=== PATIENT | male | born 1965 | race African-American/Black ===

== ENCOUNTER 2020-08-14 08:00 | Outpatient (CLI) | payer BC, SELFPAY ==
--- NOTE | 2020-09-03 22:38 | SLEEP_ITS ---
HOME SLEEP TEST DATE OF STUDY: 08/14/2020 ORDERING PHYSICIAN: Kathrin Howell MD. REASON FOR THIS STUDY: Insomnia, poor quality sleep. HISTORY: This patient is a 55-year-old male, 5 feet 6 inches tall, weighing 193 pounds with a body mass index of 31.1. He had insomnia, which started in 2012, has been treated with temazepam, zolpidem, and trazodone. He has difficulty falling asleep and difficulty with problems waking up during the night including the chlorine cell tender hours. He occasionally awakens from sleep feeling short of breath, never awakens at night with heartburn, belching, or coughing. He rarely snores and it is never loud enough that others complain about it. He does not have trouble sleeping with a cold. He rarely wakes up gasping for breath at night, occasionally has breathing problems at night witnessed by others. He does not sweat excessively at night. He does not notice his heart pounding or beating irregularly at night. He rarely falls asleep during the day never involuntarily, never while driving and never with physical effort. He does not have loss of muscle tone with strong emotion. He occasionally has daytime difficulties due to excessive sleepiness. He does not feel paralyzed on waking or falling asleep and occasionally has vivid dreamlike scenes upon awakening or falling asleep. He is rarely afraid to go to sleep. He rarely has nightmares. He occasionally remembers his dreams. He rarely has racing thoughts. He rarely feels sad or depressed. He rarely has anxiety. He occasionally has muscular tension. He occasionally notices parts of his body jerking and he occasionally kicks at night. He does not have crawly achy feelings in his legs, denies leg pain at night and does not have morning jaw pain. He occasionally grinds his teeth at night. He occasionally is bothered by pain during the day. He is not awakened by pain during the night, does not wake up feeling stiff in the morning, does not have sore achy muscles in the morning or pain in the neck and spine. He has fatigue, headaches, insomnia and is unable to relax. Normal bedtime is 11 p.m. to 12 p.m., falling asleep within 30 minutes or as long as 2 hours. He typically wakes 1 or 2 times at night. During this time, he will use the Internet or the television. His wake-up time is 6:45 a.m. The weekend schedule varies. In addition to his sedatives at bedtime, he also has a drink or more than 1 drink or else he will not be able to fall asleep at night. He does not take naps. Naps are not refreshing. He is drowsy in the morning for an hour or longer after waking. He feels better in the afternoon compared to other times of day. He also indicates that cocaine usage from [id number] cause difficulties with his nerves and this has also worsened his sleep. He cannot sleep now without help. MEDICAL COMORBIDITIES: Anxiety, asthma, substance use disorder, insomnia. CURRENT MEDICATIONS: Zolpidem 10 mg on the night of this sleep study. Advair 250/50 twice a day for asthma, albuterol 1 puff as needed p.r.n. asthma. HABITS: Never smoked tobacco. Caffeine, 1 energy drink as needed. Alcohol 2-4 shots daily. No current recreational drugs, although he indicates that he has used cocaine up until 2017. DESCRIPTION OF THE STUDY: On the Clifford Sleepiness Scale, his score is 0. This study was performed as an unattended home sleep test, portable type 3 with 4 channel monitoring including respiratory effort channel, snoring channel, oxygen saturation channel, and heart rate channel. This study was scored using CMS guidelines. The data was not adequate for normal interpretation. The oximeter was off for most of the study. The duration of the data that could be evaluated was 52 minutes, which is very rachael
== END 2020-08-14 08:01 | disposition home or self-care (01) ==
LOC: ANHCSM 08:00
PROVIDERS: PCP Family Medicine; Visit Provider Family Medicine
DX: G47.10 Hypersomnia, unspecified (principal)
CPT/HCPCS: 95806

== ENCOUNTER 2020-09-25 16:32 | Emergency (ER) | payer SELFPAY ==
[2020-09-25 16:37] VITALS: BP 132/85; PULSE 107; RESP 18; TEMP 36.4; O2SAT 95
--- NOTE | 2020-09-25 17:01 | ED.ALCOHOL ---
HPI - Alcohol General Chief Complaint: Alcohol Stated Complaint: alcohol withdrawal Time Seen by Provider: 09/25/20 17:01 Source: patient Limitations: no limitations History of Present Illness HPI narrative: Patient is 55 years old -[place] male presents with depression, feeling lonely, feeling scared, and would like to punch the president [employer]o [employer], abdominal trauma and he knew that he cannot do it because he would be killed but would like to punch him. Patient also not sure if he wants to harm himself or not. Did not go to work for the last 5 days, been drinking since and would like to keep drinking and he does not know why. Patient believes there is something wrong in his head. Patient lives alone, came to the emergency room with his daughter. Related Data Home Medications Medication Instructions Recorded Confirmed hydroxyzine HCl 09/26/20 temazepam mg 09/26/20 zolpidem 09/26/20 Allergies Allergy/AdvReac Type Severity Reaction Status Date / Time No Known Allergies Allergy Verified 09/26/20 00:57 Review of Systems Review of Systems: Narrative: CONSTITUTIONAL: Denies fever, chills, or sweats. EYES: Denies visual changes, redness, or discharge. ENT: Denies rhinorrhea, congestion, sore throat, or otalgia. CARDIOVASCULAR: Denies chest pain, palpitations, or edema. RESPIRATORY: Denies cough or dyspnea. GASTROINTESTINAL: Denies abdominal pain, nausea, vomiting, or diarrhea. GENITOURINARY: Denies dysuria or hematuria. SKIN: Denies rash or itching. MUSCULOSKELETAL: Denies back pain, joint pain, or myalgia. NEUROLOGIC: Denies headache, numbness, or weakness. PSYCHIATRIC: Anxiety and depression PMFSH Social History Social History (Updated 09/25/20 @ 17:23 by Eloisa Judd MD) Social History: Patient drinks daily since he was 14 years old Gender identity (if verbalized by the patient): Male Exam Narrative: Exam Narrative: General appearance: Well-developed, well-nourished Skin: Normal color Head: Normocephalic, nontraumatic Eyes: Clear conjunctiva ENT: Oropharynx normal, ears normal, nose normal Neck: Supple, nontender Chest and respiratory: Airway patent, no respiratory distress, no accessory muscle use Heart: Regular rate/rhythm Abdomen: Soft, nontender, no organomegaly, quiet bowel sounds Vascular: Normal peripheral pulses, normal capillary refill. Musculoskeletal: Normal range of motion, nontender back Neurologic: Alert and oriented ?3, [employer] is normal as tested, no gross motor deficit Course Course Emergency Course: Stable Reevaluation(s) Reevaluation #1: Patient symptoms improved, currently denying any suicidal or homicidal ideation. Patient would like to go home. Waiting for crisis evaluation after repeating his alcohol level. Date: 09/26/20 Time: 01:22 Vital Signs Vital signs: Vital Signs Temperature 36.4 C L 09/25/20 16:37 Pulse Rate 107 H 09/25/20 16:37 Respiratory Rate 18 09/25/20 16:37 Blood Pressure 132/85 09/25/20 16:37 Pulse Oximetry 95 09/25/20 16:37 Temperature 36.4 C L 09/25/20 16:37 Pulse Rate 79 09/26/20 01:07 Respiratory Rate 20 09/26/20 01:07 Blood Pressure 110/72 09/26/20 01:07 Pulse Oximetry 97 09/26/20 01:07 MDM - Alcohol MDM Narrative Medical decision making narrative: Basically patient is depressed, alcoholic dependent, lives alone, feeling lonely, did not go to work for the last 5 days, feels like he want to drink nonstop. Patient would like to be hospitalized for behavior management and psych evaluation. Labs, chest x-ray, UA, alcohol level, ordered. Banana bag started, Ativan 2 mg IM given, Waiting for crisis evaluation. Different
--- NOTE | 2020-09-25 17:03 | ECG_ITS ---
Measurements Intervals [place] Rate: 97 P: 83 VT: 163 QRS: -25 QRSD: 102 T: 35 QT: 354 QTc: 452 Interpretive Statements SINUS RHYTHM BORDERLINE T WAVE ABNORMALITY- INFERIOR LEADS BASELINE ARTIFACT- I, II, III, V4-V6 BORDERLINE ECG Electronically Signed On 09-25-2020 18:57:39 [facility] by Donny Brennan D.O.
[2020-09-25 17:32] LABS: Basophils Percent Auto 0.4 % (0.2-1.2); Hematocrit 41.3 % (42.0-52.0); Immature Granulocyte Absolute 0.01 K/mm3 (0.00-0.031); Immature Granulocyte Percent A 0.1 % (0-0.5); Lymphocytes Absolute Auto 1.75 K/mm3 (0.9-3.2); Lymphocytes Percent Auto 18.8 % (18.3-44.2); Mean Corpuscular HGB Conc 36.3 g/dl (32-36); Mean Corpuscular Hemoglobin 31.6 pg (26-34); Mean Corpuscular Volume 87.1 fl (80-100); Mean Platelet Volume 8.5 fl (7.4-10.4); Monocytes Absolute Auto 1.1 K/mm3 (0.1-0.6); Monocytes Percent Auto 11.4 % (2.6-8.5); Neutrophils Absolute Auto 6.5 K/mm3 (1.3-6.7); Neutrophils Percent Auto 69.3 % (45.5-73.1); Platelet Count Result 192 k/mm3 (150-375); Red Blood Count 4.74 M/mm3 (4.6-6.20); White Blood Count 9.3 K/mm3 (4.5-10.0)
[2020-09-25 17:42] LABS: Add Urine Microscopic? YES; Appearance Urine Clear (Clear); Bilirubin Urine Negative (Negative); Blood Urine 2+ (Negative); Color Urine Colorless (Yellow); Glucose Urine UA 1+ mg/dL (Negative); Ketones Urine Negative (Negative); Leukocyte Esterase Ur Negative LEU/UL (Negative); Nitrate Urine Negative (Negative); Protein Urine Negative (Negative); RBC Urine 0-2 /hpf (0-2); Specific Grav Ur 1.005 (1.001-1.035); Urobilinogen Urine Negative mg/dL (<2.0)
[2020-09-25 17:42] LABS: INR 0.9; Prothrombin Time 12.6 Seconds (11.1-14.7)
[2020-09-25 17:44] LABS: Alanine Aminotransferase 46 U/L (4-50); Albumin Level 4.5 g/dL (3.5-5.1); Alkaline Phosphatase 58 U/L (38-126); Anion Gap 14 mmol/L (8-16); Aspartate Amino Transferase 60 U/L (17-59); Bilirubin,Total 0.3 mg/dL (0.2-1.3); Blood Urea Nitrogen 10 mg/dL (9-20); Calcium 8.8 mg/dL (8.4-10.2); Carbon Dioxide 28 mmol/L (22-30); Chloride 100 mmol/L (98-107); Estimated CRCL calculation 73 ml/min; Estimated Glomerular Filt Rate > 60; Glucose 205 mg/dL (75-110); Magnesium 1.9 mg/dL (1.6-2.3); Potassium 3.9 mmol/L (3.4-5.0); Sodium 142 mmol/L (137-145)
[2020-09-25 17:45] LABS: Ethanol 270 mg/dL (<10)
[2020-09-25 19:11] VITALS: BP 104/70; PULSE 87; RESP 12; O2SAT 99
[2020-09-25 20:00] VITALS: BP 133/116; PULSE 85; RESP 20; O2SAT 97
--- NOTE | 2020-09-25 20:46 | PC.NURSE ---
CALLED DAUGHTER BINA TO INFORM HER OF THE PATIENT REQUESTING TO LEAVE AND PER EDP ESPARZA PATIENT WOULD BE ALOUD TO LEAVE WITH DAUGHTER, DAUGHTER STATES SHE HAS HAD A COUPLE OF DRINKS AND WILL NOT BE ABLE TO PICK PATIENT UP. PT INFORMED OF THIS AND WILL TRY TO CALL DAUGHTER HIMSELF.
--- NOTE | 2020-09-25 21:00 | PC.NURSE ---
EXPLAINED TO PATIENT THAT WE NEEDED HIS ALCOHOL TO COME DOWN BEFORE WE COULD CALL ANYONE OUT TO TALK WITH HIM. EXPLAINED THAT IT WOULD BE AROUND 0030 BEFORE WE WOULD DRAW IT.
--- NOTE | 2020-09-25 22:50 | PC.NURSE ---
PT TRYING TO LEAVE, SECURITY CALLED, PT LEFT
--- NOTE | 2020-09-25 22:56 | PC.NURSE ---
PT LEFT AGAINST MEDICAL ADVICE, DR ESPARZA REQUEST THAT PATIENT BE PICKED UP BY PD FOR MAKING THREATS AGAINST THE [employer].
--- NOTE | 2020-09-25 22:58 | PC.NURSE ---
PD CALLED BY SECURITY
--- NOTE | 2020-09-25 23:00 | PC.NURSE ---
PT AGREEABLE TO STAYING AT THIS TIME, REQUEST SOMETHING TO HELP HER SLEEP, NEW ORDERS PLACED
--- NOTE | 2020-09-25 23:15 | PC.NURSE ---
SECURITY CALLED PD TO CANCEL THEM COMING OUT
[2020-09-25] MEDS: LORazepam INJ (*CRX) 2 MG/ML VIAL IM (23:19)
[2020-09-25 23:35] VITALS: BP 122/78; PULSE 84; RESP 20; O2SAT 98
[2020-09-25 23:45] LABS: Ethanol 110 mg/dL (<10)
[2020-09-26] MEDS: hydrOXYzine pamoate 25 MG CAPSULE 50 MG PO (01:01)
[2020-09-26 01:07] VITALS: BP 110/72; PULSE 79; RESP 20; O2SAT 97
[2020-09-26 01:27] LABS: Ethanol 54 mg/dL (<10)
--- NOTE | 2020-09-26 01:39 | PC.NURSE ---
called crisis converse with ruth, she will send someone.
[2020-09-26 02:26] VITALS: BP 118/78; PULSE 82; RESP 20; O2SAT 98
== END 2020-09-26 02:38 | disposition home or self-care (01) ==
PROVIDERS: Emergency Provider Emergency Medicine
DX: F10.29 Alcohol dependence with unspecified alcohol-induced disorder (principal); F32.9 Major depressive disorder, single episode, unspecified; Y90.8 Blood alcohol level of 240 mg/100 ml or more
CPT/HCPCS: 36415; 80053; 80307; 81001; 83735; 85025; 85610; 93005; 96365; 96366; 96372; 99284; A9270; J2060; J3411; J3475; J7030